=== PATIENT | male | born 1985 | race Caucasian/White ===

== ENCOUNTER 2017-04-08 10:14 | Emergency (ER) | payer BC, OTHER ==
[2017-04-08 11:07] VITALS: BP 119/78
[2017-04-08] MEDS ORDERED: IBUPROFEN 400 MG TABLET PO STA (11:24)
[2017-04-08] MEDS ORDERED: CYCLOBENZAPRINE 10 MG TABLET PO STA (11:24)
--- NOTE | 2017-04-08 11:27 | ED Physician Documentation ---
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 Review of Systems Musculoskeletal: reports: Pain with weight bearing PD PAST MEDICAL HISTORY - Past Medical History Musculoskeletal: Chronic back pain - Present Medications Home Medications: Ambulatory Orders Medication Instructions Recorded Confirmed Cyclobenzaprine [Flexeril] 10 mg PO TID PRN #20 tablet 04/08/17 Ibuprofen [Motrin] 400 mg PO Q6H PRN #30 tablet 04/08/17 - Allergies Allergies/Adverse Reactions: Allergies Allergy/AdvReac Type Severity Reaction Status Date / Time No Known Drug Allergies Allergy Verified 04/08/17 10:23 - Social History Does the pt smoke?: No Smoking Status: Never smoker Does the pt drink ETOH?: No Does the pt have substance abuse?: No - POLST Patient has POLST: No PD ED PE NORMAL - Vitals Vital signs reviewed: Yes - Extremities Extremities: Other (RLE: + edema to calf, TTP low calf, no warmth or erythema, achilles palpates intact and nl navarro, MSV intact) Results - Vitals Vitals: Vital Signs - 24 hr 04/08/17 04/08/17 10:18 11:03 Temperature 36.3 C L 36.6 C Heart Rate 59 L 66 Respiratory 14 18 Rate Blood Pressure 143/91 H 119/78 O2 Saturation 100 99 Oxygen O2 Source Room air PD MEDICAL DECISION MAKING - ED course ED course: exam c/w soleus mm tear and spasm advised pt xrays will not help will splint and place on crutches and refeer to ortho for further eval Departure - Departure Disposition: Home, Self Care Clinical Impression: Muscle tear Condition: Good Instructions: ED Crutch Walking, ED Splint Care Fiberglass Follow-Up: Char Jewell PA-C [Primary Care Provider] - [facility] [Provider Group] (call to schedule) Prescriptions: Cyclobenzaprine [Flexeril] 10 mg PO TID PRN #20 tablet PRN Reason: Spasms Ibuprofen [Motrin] 400 mg PO Q6H PRN #30 tablet PRN Reason: Pain Comments: It seems you have torn your soleus muscle Recommend wearing the splint and not bearing any weight for a week, then may use an MARY wrap and bear weight as tolerated. Follow up with orthopedics (you need to call to schedule) for further evaluation - if you are not improving you may need further imaging such as a MRI Motrin for pain Flexeril for muscle spasms. Ice and elevation for the swelling Forms: Activity restrictions
[2017-04-08] MEDS ORDERED: IBUPROFEN 800 MG TABLET PO ONE (11:37)
== END 2017-04-08 12:33 | disposition home or self-care (01) ==
LOC: ED 10:14
DX: S86.111A Strain of other muscle(s) and tendon(s) of posterior muscle group at lower leg level, right leg, initial encounter (principal); X50.3XXA Overexertion from repetitive movements, initial encounter; Y93.01 Activity, walking, marching and hiking; Y99.0 Civilian activity done for income or pay
CPT/HCPCS: 29515; 99283; A9270

== ENCOUNTER 2017-09-25 14:12 | Outpatient (CLI) | payer BC, OTHER ==
--- NOTE | 2017-09-25 20:00 | XRAY Report ---
EXAM: CHEST RADIOGRAPHY EXAM DATE: 09/25/2017 02:30 PM. CLINICAL HISTORY: FATIGUE, FEVER, COUGH. COMPARISON: None. TECHNIQUE: 2 views. FINDINGS: Lungs/Pleura: No focal opacities evident. No pleural effusion. No pneumothorax. Normal volumes. Mediastinum: Heart and mediastinal contours are unremarkable. Other: None. IMPRESSION: No acute intrathoracic plain film abnormality. [facility] Referring Provider Line: [phone] SITE ID: [id number]
== END 2017-09-25 14:13 | disposition home or self-care (01) ==
LOC: LAB 14:12 → DI 14:13
PROVIDERS: ATTEND Family Medicine
DX: R05 Cough (principal); R53.83 Other fatigue; R50.9 Fever, unspecified
CPT/HCPCS: 71020

== ENCOUNTER 2018-05-21 10:19 | Emergency (ER) | payer BC, OTHER ==
--- NOTE | 2018-05-21 11:41 | ED Physician Documentation ---
PD HPI BACK INJURY - Stated complaint Stated Complaint: BACK PX - History obtained from History obtained from: Patient - History of Present Illness Location: Right, Upper (thoracic area) Type of injury: Twist. No: Fall, Blunt / blow Where injury occurred: Home Timing - onset: Yesterday (onset of some right thoracic pain last evening, and worse today with spasms.) Timing - details: Abrupt onset. No: Gradual onset Worsened by: Moving, Palpating, Other (deep breathing) Associated symptoms: No: Fever, Weakness, Numbness, Incontinent of urine Contributing factors: No: Anticoagulated, Prior back surgery Similar symptoms before: Has not had sx before Recently seen: Not recently seen Review of Systems Constitutional: denies: Fever, Myalgias Nose: denies: Rhinorrhea / runny nose, Congestion GI: denies: Abdominal Pain, Nausea, Vomiting, Diarrhea : denies: Frequency Skin: denies: Rash, Lesions Musculoskeletal: reports: Back pain (right thoracic area, medial to scapula.) PD PAST MEDICAL HISTORY - Past Medical History Past Medical History: Yes Cardiovascular: None Respiratory: None Endocrine/Autoimmune: None Musculoskeletal: Chronic back pain - Past Surgical History Past Surgical History: No - Present Medications Home Medications: Ambulatory Orders Medication Instructions Recorded Confirmed Cyclobenzaprine [Flexeril] 10 mg PO TID PRN #20 tablet 04/08/17 Ibuprofen [Motrin] 400 mg PO Q6H PRN #30 tablet 04/08/17 Ibuprofen [Motrin] 600 mg PO TID #30 tab 05/21/18 Oxycodone HCl/Acetaminophen 1 each PO Q6H PRN #20 tablet 05/21/18 [Percocet 5-325 mg Tablet] diazePAM [Diazepam] 5 mg PO TID PRN #20 tablet 05/21/18 - Allergies Allergies/Adverse Reactions: Allergies Allergy/AdvReac Type Severity Reaction Status Date / Time No Known Drug Allergies Allergy Verified 04/08/17 10:23 - Social History Does the pt smoke?: No Smoking Status: Never smoker Does the pt drink ETOH?: No Does the pt have substance abuse?: No - Immunizations Immunizations are current?: Yes - POLST Patient has POLST: No PD ED PE NORMAL - Vitals Vital signs reviewed: Yes - General General: Alert and oriented X 3, Well developed/nourished, Other (appears uncomfortable with guarded upper back movements. Worse wt) - HEENT HEENT: Atraumatic, Pharynx benign - Neck Neck: Supple, no meningeal sign, No bony TTP, No adenopathy - Cardiac Cardiac: RRR, No murmur - Respiratory Respiratory: Clear bilaterally - Abdomen Abdomen: Normal bowel sounds, Soft, Non tender - Male Male : Deferred - Rectal Rectal: Deferred - Back Back: No CVA TTP, No spinal TTP, Other (some tender in muscles medial scapular area lower part. No rash nor sores. ) - Derm Derm: Normal color, Warm and dry, No rash - Extremities Extremities: No deformity - Neuro Neuro: Alert and oriented X 3, No motor deficit, No sensory deficit, Normal speech Results - Vitals Vitals: Oxygen O2 Source Room air - Labs Labs: Laboratory Tests 05/21/18 13:52 Urine Color YELLOW Urine Clarity CLEAR Urine pH 6.0 Ur Specific [place] 1.020 Urine Protein NEGATIVE Urine Glucose (UA) NEGATIVE Urine Ketones NEGATIVE Urine Occult Blood NEGATIVE Urine Nitrite NEGATIVE Urine Bilirubin NEGATIVE Urine Urobilinogen 0.2 (NORMAL) Ur Leukocyte Esterase NEGATIVE Ur Microscopic Review NOT INDICATED Urine Culture Comments NOT INDICATED - Rads (name of study) chest xray Radiology: Prelim report reviewed, EMP read contemporaneously (no acute process) PD MEDICAL DECISION MAKING - ED course Complexity details: reviewed results, considered differential (significant pain lower thoracic area with movement and breathing. No noted injury. CXR shows normal lungs and ribs. ), d/w patient - Sepsis Event Vital Signs: Oxygen O2 Source Room air Departure - Departure Disposition: 01 Home, Self Care Clinical Impression: Acute thoracic back pain Qualifiers: Back pain laterality: right Qualified Code(s): M54.6 - Pain in thoracic spine Condition: Stable Record reviewed to determine appropriate education?: Yes Instructions: ED Spasm Back No Trauma Follow-Up: Samuel Nicholson DO [Primary Care Provider] - Prescriptions: diazePAM [Diazepam] 5 mg PO TID PRN #20 tablet PRN Reason: Spasms Ibuprofen [Motrin] 600 mg PO TID #30 tab Oxycodone HCl/Acetaminophen [Percocet 5-325 mg Tablet] 1 each PO Q6H PRN #20 tablet PRN Reason: Pain Comments: Seems like an intercostal muscle spasm and irritation. There is no signs of pneumonia nor pneumothorax or other acute abnormality on the chest x-ray. There is no obvious rash or sores. Recheck if other symptoms develop such as fever, rash, cough, shortness of breath. Otherwise use some heat and gentle stretching for the area. Rest for the next 2-3 days until improved. Ibuprofen or naproxen 3 times a day for the next week. Add diazepam if needed for spasms and Percocet if needed for pain. Recheck if not improving over the next few days. Forms: Activity restrictions Discharge Date/Time: 05/21/18 15:26
[2018-05-21] MEDS ORDERED: KETOROLAC 60 MG/2 ML VIAL IM STA (12:02)
[2018-05-21] MEDS ORDERED: MORPHINE 10 MG/ML VIAL IM STA ×2 (12:02→13:39)
--- NOTE | 2018-05-21 12:51 | XRAY Report ---
Procedure Date: 05/21/2018 Accession Number: [id number] / [id number] Procedure: XR - Chest 2 View X-Ray CPT Code: 59960 FULL RESULT: EXAM: CHEST RADIOGRAPHY EXAM DATE: 05/21/2018 12:29 PM. CLINICAL HISTORY: Left-sided chest pain. COMPARISON: 09/25/2017. TECHNIQUE: 2 views. FINDINGS: Lungs/Pleura: No focal opacities evident. No pleural effusion. No pneumothorax. Normal volumes. Mediastinum: Heart and mediastinal contours are unremarkable. Other: There is mild dilatation of possible small bowel loops left upper quadrant. IMPRESSION: Mild dilatation of possible small bowel loops in the left upper quadrant. Correlate for possible abdominal symptoms. Unremarkable exam otherwise. [facility]
[2018-05-21] MEDS ORDERED: diazePAM 5 MG TABLET PO STA (13:40)
[2018-05-21 14:13] LABS: BILIRUBIN,URINE NEGATIVE (NEGATIVE); GLUCOSE, URINE (UA) NEGATIVE (NEGATIVE); KETONES,URINE (UA) NEGATIVE (NEGATIVE); LEUKOCYTE ESTERASE, URINE NEGATIVE (NEGATIVE); NITRITE,URINE NEGATIVE (NEGATIVE); OCCULT BLOOD,URINE NEGATIVE (NEGATIVE); PROTEIN,URINE NEGATIVE (NEGATIVE); UROBILINOGEN,URINE 0.2 (NORMAL) E.U./dL (NORMAL)
[2018-05-21 14:15] LABS: CLARITY,URINE CLEAR (CLEAR)
[2018-05-21 15:32] VITALS: BP 122/83
== END 2018-05-21 15:26 | disposition home or self-care (01) ==
LOC: ED 10:19
DX: M54.6 Pain in thoracic spine (principal); R93.5 Abnormal findings on diagnostic imaging of other abdominal regions, including retroperitoneum
CPT/HCPCS: 71046; 81003; 96372; 99283; A9270; 81001; 87086

== ENCOUNTER 2020-12-02 14:17 | Outpatient (CLI) | payer BC, OTHER ==
--- NOTE | 2020-12-02 15:39 | XRAY Report ---
PROCEDURE: Hand 3 View LT INDICATIONS: LT FINGER PAIN, INJURY LEFT HAND TECHNIQUE: 3 views of the hand acquired. COMPARISON: None. FINDINGS: Bones: No acute fractures or dislocations. No suspicious bony lesions. Soft tissues: No suspicious soft tissue calcifications. IMPRESSION: No acute osseous abnormality. If there is clinical concern or persistent symptoms, further evaluation with repeat radiographs or advanced imaging (e.g. CT, MRI) may be obtained for further evaluation. Reviewed by: Dexter Murray MD on 12/02/2020 3:38 PM PST Approved by: Dexter Murray MD on 12/02/2020 3:38 PM [facility] Station ID: [id number]
== END 2020-12-02 14:18 | disposition home or self-care (01) ==
LOC: DI 14:17
PROVIDERS: ATTEND Physician Assistant
DX: S69.92XA Unspecified injury of left wrist, hand and finger(s), initial encounter (principal); M79.645 Pain in left finger(s)

== ENCOUNTER 2020-12-17 15:10 | Outpatient (CLI) | payer BC, OTHER ==
--- NOTE | 2020-12-17 16:45 | XRAY Report ---
PROCEDURE: Lumbar Spine 2 View INDICATIONS: LOW BACK PAIN TECHNIQUE: views of the lumbar spine were acquired. COMPARISON: None. FINDINGS: Bones: Suspected bilateral L5 pars defects with approximately 6 mm anterolisthesis of L5 on S1. Other lucas normal alignment. Vertebral body heights maintained. Disc height loss at L3-L4, L4-L5, and L5-S1 with associated degenerative endplate changes and facet hypertrophy. Soft tissues: Overlying bowel gas pattern is normal. No suspicious soft tissue calcifications. IMPRESSION: Degenerative changes in the lower lumbar spine with suspected bilateral L5 pars defects and grade 1 spondylolisthesis. Reviewed by: Shaquille Soto MD on 12/17/2020 3:43 PM [place] Approved by: Shaquille Soto MD on 12/17/2020 3:43 PM [place] Station ID: [id number]
== END 2020-12-17 15:11 | disposition home or self-care (01) ==
LOC: DI 15:10
PROVIDERS: ATTEND Physician Assistant Medical
DX: M47.816 Spondylosis without myelopathy or radiculopathy, lumbar region (principal)

== ENCOUNTER 2021-05-29 12:03 | Outpatient (CLI) | payer BC, OTHER ==
--- NOTE | 2021-05-29 16:15 | XRAY Report ---
PROCEDURE: Foot 3 View RT INDICATIONS: PAIN IN RIGHT FOOT TECHNIQUE: 3 views of the foot were acquired. COMPARISON: None FINDINGS: Bones: No fractures or dislocations. No suspicious bony lesions. Soft tissues: No tibiotalar joint effusion. Achilles tendon appears normal. IMPRESSION: No evidence acute bony abnormality of the right foot. Reviewed by: Alonzo Huerta MD on 05/29/2021 4:14 PM PDT Approved by: Alonzo Huerta MD on 05/29/2021 4:14 PM PDT Station ID: [id number]
== END 2021-05-29 23:59 | disposition home or self-care (01) ==
LOC: DI.N 12:03
PROVIDERS: ATTEND Nurse Practitioner
DX: M79.671 Pain in right foot (principal)

== ENCOUNTER 2024-01-26 15:18 | Outpatient (CLI) | payer BC ==
--- NOTE | 2024-01-26 16:07 | Sleep Patient Instructions ---
Sleep Center Visit Summary - Patient Visit Information Reason for Visit: Initial consult for evaluation of sleep disordered breathing and other sleep issues. - Patient Instructions Instructions Attached: Sleep Study Home Monitor Additional Instructions: You will be completing a sleep study, either an in-lab polysomnography (PSG) or home sleep study (HST). You will follow-up in the sleep care office after the sleep study is completed to hear the results and talk about therapy, if needed. You will be called by our office staff to schedule this appointment, but you may contact us with any questions. - Clinic Information Contact: [facility] [address] [place] [address] [email or web address] T: [phone]
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
[2024-01-26 16:24] VITALS: BP 145/92; O2SAT 98
== END 2024-01-26 15:19 | disposition home or self-care (01) ==
LOC: SC 15:18
PROVIDERS: ATTEND Nurse Practitioner Family
DX: G47.10 Hypersomnia, unspecified (principal); G47.8 Other sleep disorders; R06.81 Apnea, not elsewhere classified; R06.83 Snoring; E66.9 Obesity, unspecified; Z68.35 Body mass index [BMI] 35.0-35.9, adult
CPT/HCPCS: 99203; 99212

== ENCOUNTER 2024-02-21 08:37 | Outpatient (CLI) | payer BC ==
[2024-02-21 12:15] LABS: BASOPHILS % (AUTO) 0.4 %; EOSINOPHILS # (AUTO) 0.2 10^3/uL (0.0-0.7); EOSINOPHILS % (AUTO) 3.1 %; HCT - HEMATOCRIT 56.2 % (42.0-52.0); HGB - HEMOGLOBIN 18.4 g/dL (14.0-18.0); LYMPHOCYTES # (AUTO) 2.7 10^3/uL (1.5-3.5); LYMPHOCYTES % (AUTO) 36.3 %; MEAN CORPUSCULAR HGB CONC 32.7 g/dL (32.0-36.0); MEAN CORPUSCULAR VOLUME 94.6 fL (80.0-94.0); MEAN PLATELET VOLUME 11.3 fL (7.4-11.4); MONOCYTES # (AUTO) 0.6 10^3/uL (0.0-1.0); MONOCYTES % (AUTO) 7.7 %; NEUTROPHILS # (AUTO) 3.8 10^3/uL (1.5-6.6); NEUTROPHILS % (AUTO) 52.4 %; PLT - PLATELET COUNT 217 10^3/uL (130-450); RED BLOOD COUNT 5.94 10^6/uL (4.70-6.10); RED CELL DISTRIBUTION WIDTH 12.5 % (12.0-15.0); WHITE BLOOD COUNT 7.3 x10^3/uL (4.8-10.8)
[2024-02-21 12:42] LABS: ALBUMIN 4.4 g/dL (3.2-5.5); ALBUMIN/GLOBULIN RATIO 1.8 (1.0-2.2); ALKALINE PHOSPHATASE 43 IU/L (42-121); ALT ALANINE AMINOTRANSFERASE 27 IU/L (10-60); AST ASPARTATE AMINOTRANSFERASE 30 IU/L (10-42); BILIRUBIN,TOTAL 1.4 mg/dL (0.2-1.0); BUN - BLOOD UREA NITROGEN 16 mg/dL (6-20); CALCIUM 10.1 mg/dL (8.5-10.3); CARBON DIOXIDE - CO2 32 mmol/L (21-32); CHLORIDE 101 mmol/L (101-111); CHOL/HDL RATIO 3.4 (<5.0); CHOLESTEROL 158 mg/dL; CREATININE 1.2 mg/dL (0.6-1.3); GFR - MDRD 68 (>89); GLUCOSE 101 mg/dL (74-104); HDL CHOLESTEROL 46 mg/dL; LDL CHOLESTEROL,CALCULATED 86 mg/dL; LDL/HDL RATIO 1.9 (<3.6); POTASSIUM 4.7 mmol/L (3.5-4.5); SODIUM 137 mmol/L (135-145); TOTAL PROTEIN 6.9 g/dL (6.4-8.9); TRIGLYCERIDES 129 mg/dL (48-352); VLDL CHOLESTEROL 26 mg/dL
[2024-02-21 12:47] LABS: THYROID STIMULATING HORMONE 0.47 uIU/mL (0.34-5.60)
== END 2024-02-21 08:38 | disposition home or self-care (01) ==
LOC: LAB.N 08:37
PROVIDERS: ATTEND Nurse Practitioner
DX: R53.83 Other fatigue (principal); Z13.220 Encounter for screening for lipoid disorders; E29.1 Testicular hypofunction
CPT/HCPCS: 36415; 80053; 80061; 83721; 84403; 84443; 85025

== ENCOUNTER 2024-03-27 09:13 | Outpatient (CLI) | payer BC | END 2024-03-27 09:14 | disposition home or self-care (01) | LOC: SC 09:13 | PROVIDERS: ATTEND Nurse Practitioner Family | DX: G47.33 Obstructive sleep apnea (adult) (pediatric) (principal); R09.02 Hypoxemia; E66.9 Obesity, unspecified; Z68.35 Body mass index [BMI] 35.0-35.9, adult | CPT/HCPCS: 95806 ==

== ENCOUNTER 2024-05-18 09:50 | Outpatient (CLI) | payer BC ==
--- NOTE | 2024-05-18 10:19 | Sleep Patient Instructions ---
Sleep Center Visit Summary - Patient Visit Information Reason for Visit: Sleep study follow-up - Patient Instructions Instructions Attached: Apnea Sleep Mouthpieces Additional Instructions: You have opted for an oral mandibular appliance to control your sleep apnea. A list of certified dentists in the area was provided for you to find a dentist to have your oral appliance made. Once you have the device, please call and make a follow up appointment. We need to see you after you have been using the appliance for a month. We will evaluate your response to therapy and order a follow up sleep study to check efficiency of treatment. Please call office to schedule a follow up appointment in the sleep care office one month after obtaining new device. - Clinic Information Contact: [facility] [address] [place] [address] [email or web address] T: [phone]
--- NOTE | 2024-05-18 10:22 | SLEEP CARE CONSULTATION ---
Information from patient questionnaire entered by Mary Linda. I have reviewed and concur with the information entered by Mary Linda. This document represents the service I personally performed and the decisions made by , Татьяна Pillai ARNP. History of Present Illness Service Date and Time: 05/18/2024 0950 Initial [place] Sleepiness Scale score: 17 (01/26/24) Current [place] Sleepiness Scale score: 20 (05/18/24) Additional HPI information: OLVIN GOLD returns for follow up and results of the recently performed home sleep study. The sleep study done on 03/27/24 showed mild obstructive sleep apnea with an average AHI of 5.6 and luis oxygen saturation of 85%. I explained the pathophysiology behind obstructive sleep apnea. We then spent quite a bit of time discussing different treatment options. For mild obstructive sleep apnea, surgery and oral appliance are alternatives to nasal CPAP therapy but in moderate or severe cases, nasal CPAP is the most effective and reliable treatment. Because apnea is primarily in supine position, then positional management therapy could be effective. Methods discussed such as positioning with pillows, using a T-shirt with tennis balls in the back or commercial products that have a pillow format on back to prevent supine sleep. I reviewed the impact of weight changes on sleep apnea and strongly recommended losing weight. After some discussion, the patient opted to go with the oral appliance. Patient counseled not drink alcohol less than 4 hours before bedtime as it can increase snoring and apnea. Patient was cautioned about risks of drowsy driving until sleepiness symptoms resolve. Sleep Study - Results Type of Sleep Study: Home sleep study (COMPLETED 03/27/24) Prior sleep studies: No Polysomnography/Home Sleep Study results: Physician Impression: The quality of the study is good. The length of the study is adequate (> 240 minutes). Please also see the tabulated and graphic data. 1. Obstructive Sleep Apnea-Hypopnea (ICD-10 G47.33), mild, with an AHI of 5.6/hr and luis SaO2 of 85%. During the study, the patient had 8 apneas (8 obstructive, 0 central, 0 mixed) and 40 hypopneas. The longest episode lasted 87.0 seconds. The respiratory events occurred almost exclusively during supine sleep (supine AHI was 9.4 and non-supine, 2.84). 2. Hypoxemia (ICD-10 R09.02), mild, with the lowest oxygen saturation of 85 % and 3.9 minutes with SaO2 under 90%. Baseline oxygen saturation was normal (Average oxygen saturation was 93%). Allergies and Home Medications Known drug allergies: No Drug allergies reviewed: Yes Home medication list reviewed: Yes (no changes) Allergy and home medication list: Allergies No Known Drug Allergies Allergy (Verified 05/15/24 11:39) Review of Systems Review of systems same as previous: Yes (NO CHANGE) Physical Exam Vital signs obtained and entered by: MARY Reid MA Blood Pressure: 146/100 (LEFT ARM) Cuff size: long Heart Rate: 82 O2 Saturation: 97 Height: 6 ft 2 in Weight: 269 lb 3.2 oz Body Mass Index: 34.5 BMI Classification: Obese Impression and Plan 1. Obstructive Sleep Apnea-Hypopnea Syndrome, mild, with lowest oxygen saturation of 85%. Obviously this is the cause of the patients symptoms of unrefreshed sleep, and excessive daytime sleepiness. Positive pressure therapy could benefit PTSD and attention deficit. As mentioned above, the patient chose an oral appliance to treat their apnea. A follow up will be made about a month after obtaining new device to see if appliance has reduced symptoms. If so, another polysomnography will be ordered with use of the oral appliance to check efficacy in reducing apnea. Until patient is able to use the oral appliance, positional therapy is advised to avoid supine sleep with pillow positioning or one of the commercial products because apnea is more severe supine. 2. Hypoxemia, mild, with a luis oxygen saturation of 85% and 3.9 minutes spent under 90%. The baseline oxygen saturation was normal with an average oxygen saturation of 93%. 3. Obesity, unspecified. Currently patients BMI is 34.5. Obesity increases the risk of apnea, CPAP pressure requirements and overall health risks especially cardiovascular and diabetes. Thus patient is advised to lose weight. * Oral appliance. * Attempt to lose weight. * Avoid alcohol consumption near bedtime. * Avoid supine sleep * The patient is again cautioned about driving until sleepiness completely resolves. * Return one month after oral appliance obtained. I will assess response to therapy at that time. Counseling Topics: Sleeping position, Weight loss health impact Prescriptions: Other (Oral Appliance) Plan: oral appliance and followup Visit Type: In Office Time Spent with Patient (minutes): 20 Provider Statement: I spent 100% of the Face to Face Visit with the patient with greater than 50% spent counseling the patient and coordination of care.
[2024-05-18 10:26] VITALS: BP 146/100; O2SAT 97
== END 2024-05-18 09:51 | disposition home or self-care (01) ==
LOC: SC 09:50
PROVIDERS: ATTEND Nurse Practitioner Family
DX: G47.33 Obstructive sleep apnea (adult) (pediatric) (principal); E66.9 Obesity, unspecified; Z68.34 Body mass index [BMI] 34.0-34.9, adult
CPT/HCPCS: 99212; 99213